=== PATIENT | female | born 1955 | race Caucasian/White ===

== ENCOUNTER → 2017-09-24 | Outpatient (CLI) | payer MEDICARE ==
[~2017-09-24] MED LIST: ACULAR 3ML 3 ML5 ML OPH; AMITRIPTYLINE100 M1 PO; AMITRIPTYLINE100 MG PO; ASPIRIN81 M1 PO; FIORINAL 325 MG1 TAB PO; FLUOXETINE20 MG PO; GABAPENTIN300 MG PO; HYDROCODONE BIT1 T11 PO; KEFLEX500 M1 PO; LEVOTHYROXIN0.075 MG PO; LEVOTHYROXINE0.05 M1 PO; MOTRIN800 MG PO; PROZAC20 MG PO; SYNTHROID0.05 MG PO; TOBRAMYCIN 5 ML5 M1 OPH; TOPAMAX100 MG PO; TOPIRAMATE50 MG PO; TOPROL XL25 MG PO; TRAMADOL HCL50 MG PO
== END | disposition home or self-care (01) ==
LOC: RAD 14:51
DX: M48.061 Spinal stenosis, lumbar region without neurogenic claudication (principal)

== ENCOUNTER → 2018-08-30 | Outpatient (CLI) | payer OTHER | END | disposition home or self-care (01) | LOC: CARD 12:57 | DX: R06.02 Shortness of breath (principal) ==